=== PATIENT | male | born 1990 | race Caucasian/White ===

== ENCOUNTER 2023-12-12 16:39 | Emergency (ER) | payer OTHER, SELFPAY ==
--- NOTE | ~2023-12-12 | XR_ITS ---
EXAMINATION: XR foot LT min 3V DATE: 12/12/2023 17:10 INDICATION: Left foot injury. TECHNIQUE: 4 views of left foot were obtained. COMPARISON: None. FINDINGS: There is mild hallux valgus. No fracture. 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 There is an enthesophyte at plantar aspect of calcaneal tuberosity. IMPRESSION: 1. No fracture. Reviewed, dictated and finalized at location A. IMPRESSION: 1. No fracture.
[2023-12-12 16:49] VITALS: BP 123/71; PULSE 92; RESP 18; TEMP 37.3; O2SAT 97
--- NOTE | 2023-12-12 16:59 | ED.LOWEXIN ---
HPI - Extremity Injury (Lower) General Chief Complaint: Extremity Injury, Lower Stated Complaint: Left foot injury Time Seen by Provider: 12/12/23 16:59 Source: patient Mode of arrival: ambulatory Limitations: no limitations History of Present Illness HPI Narrative: 33-year-old male presented for complaint of left foot pain, bruising, and swelling after injury around 9:00 a.m. today. He states while at work he dropped a large piece of concrete onto the foot. He was able to continue work throughout the day. Pain worse when walking or with touching it. Endorses present when he took off shoes at home. He denies numbness, tingling, weakness, deformity of the extremity. Has not taken anything for pain Related Data Home Medications Medication Instructions Recorded Confirmed No Home Medications 12/12/23 12/12/23 Allergies Allergy/AdvReac Type Severity Reaction Status Date / Time No Known Allergies Allergy Verified 12/12/23 16:52 Review of Systems Review of Systems: CONSTITUTIONAL: Denies body aches, fever, chills CARDIOVASCULAR: Denies chest pain, palpitations, or edema. RESPIRATORY: Denies cough or dyspnea. SKIN: Denies rash, itching, or wounds. MUSCULOSKELETAL: reports left foot pain, bruising and swelling NEUROLOGIC: Denies headache, numbness, tingling, or weakness. All systems reviewed & are unremarkable except as noted in HPI and below PMFSH Comments At time of signature, I have reviewed and agree with nursing past medical, surgical, social and family history unless otherwise noted. Please see nursing chart for further information. There is no relevant family history pertinent to the presenting complaint Exam Narrative: GENERAL: Well-appearing CHEST: Speaks in full sentences. No respiratory distress. HEART: Regular rate and rhythm. Normal and equal peripheral pulses. EXTREMITIES: Left dorsal midfoot has moderate swelling with ecchymosis extending to the medial aspect the foot; ankle with normal range of motion. Point tenderness mid/medial aspect. left foot with normal strength and sensation, Minimal superficial abrasion over the mid foot. no obvious deformity; alignment normal, pulse palpable and equal bilaterally, skin warm, dry, pink. Capillary refill less than 3 seconds. SKIN: Warm, dry NEURO: Alert and oriented x3. PSYCH: Normal mood and affect Course Course Emergency Course: Patient is aware of diagnosis, understands and agrees to treatment plan. Anticipatory guidance given. Patient agrees to follow-up as directed and is aware of reasons to seek care at the emergency department. Portions of this record may have been created with voice recognition software Level of Care: Express Care Visit Vital Signs Vital signs: Vital Signs Temperature 99.2 F 12/12/23 16:49 Pulse Rate 92 12/12/23 16:49 Respiratory Rate 18 12/12/23 16:49 Blood Pressure 123/71 12/12/23 16:49 Pulse Oximetry 97 12/12/23 16:49 Oxygen Delivery Room Air 12/12/23 16:49 Temperature 99.2 F 12/12/23 16:49 Pulse Rate 92 12/12/23 16:49 Respiratory Rate 18 12/12/23 16:49 Blood Pressure 123/71 12/12/23 16:49 Pulse Oximetry 97 12/12/23 16:49 Oxygen Delivery Room Air 12/12/23 16:49 Reviewed MDM - Extremity Injury (Lower) MDM Narrative Medical decision making narrative: results of x-ray reviewed with patient. Adalberto wrap applied. Discussed physical exam findings. Advised supportive measures and signs/symptoms to go to the ER. Pt is appropriate for outpt treatment and f/u. Differential Diagnosis Differential diagnosis: Likely ankle sprain and strain, ankle fracture and other ( Foot fracture, contusion, abrasion) Imaging Data Radiologist's impression: Patient: Phil Perry : 1990 MR#: [id number] Age: 33 Acct:[id number] Loc: [facility] ADM Date: 12/12/23Attending Dr: Ordering Physician: Babs Adams APRN Date of Service: 12/12/23 Procedure(s): XR f
== END 2023-12-12 17:23 | disposition home or self-care (01) ==
PROVIDERS: Emergency Provider Nurse Practitioner Family
DX: S90.32XA Contusion of left foot, initial encounter (principal); W20.8XXA Other cause of strike by thrown, projected or falling object, initial encounter; Y99.0 Civilian activity done for income or pay
CPT/HCPCS: 73630; 99213; G0463